=== PATIENT | male | born 2000 | race Hispanic/Latino ===

== ENCOUNTER 2023-03-19 20:39 | Emergency (ER) | payer OTHER ==
[~2023-03-19] VITALS: Ht 157.5 cm; Wt 141.5 kg
[2023-03-19] MEDS ORDERED: LIDOCAINE HCL 1% 20 ML VIAL ONE (22:41)
[2023-03-19] MEDS ORDERED: LIDOCAINE HCL 1% 20 ML VIAL INJ SCH (23:00)
[2023-03-19] MEDS ORDERED: TETANUS/DIPHTHERIA TOXOID [ADULT] 0.5 ML VIAL IM ONE (23:00)
[2023-03-19 23:07] VITALS: BP 159/90
== END 2023-03-19 23:41 | disposition home or self-care (01) ==
LOC: EDH 20:39
DX: S61.012A Laceration without foreign body of left thumb without damage to nail, initial encounter (principal); X58.XXXA Exposure to other specified factors, initial encounter; Y93.89 Activity, other specified; Y92.89 Other specified places as the place of occurrence of the external cause; Y99.8 Other external cause status
CPT/HCPCS: 12002; 90471; 90714

== ENCOUNTER 2023-03-28 21:07 | Emergency (ER) | payer OTHER ==
[~2023-03-28] VITALS: Ht 162.6 cm; Wt 142.4 kg
[2023-03-28 21:56] VITALS: BP 125/72
== END 2023-03-28 21:59 | disposition home or self-care (01) ==
LOC: EDH 21:07
DX: S61.012D Laceration without foreign body of left thumb without damage to nail, subsequent encounter (principal); Z48.02 Encounter for removal of sutures; X58.XXXD Exposure to other specified factors, subsequent encounter
CPT/HCPCS: 99281